=== PATIENT | male | born 1945 | race African-American/Black ===

== ENCOUNTER 2017-10-20 03:36 | Emergency (ER) | payer MEDICARE, MEDICAID ==
[~2017-10-20] VITALS: Ht 188 cm; Wt 79.0 kg
[2017-10-20 04:07] VITALS: BP 137/100
[2017-10-20] MEDS ORDERED: NITROGLYCERIN OINT 1GM/INCH UDPKT TD ONE (04:45)
[2017-10-20] MEDS ORDERED: ASPIRIN 325MG TABLET PO ONE (04:45)
[2017-10-20 05:27] LABS: BASOPHILS % 1.3 % (0.0-2.0); EOSINOPHILS % 1.5 % (0.0-5.0); HEMATOCRIT. 44.4 % (42.0-52.0); HEMOGLOBIN. 14.9 g/dL (14.0-18.0); LYMPHOCYTES % 41.3 % (20.0-50.0); MEAN CORPUSCULAR HEMOGLOBIN 31.6 pg (28.0-32.0); MEAN CORPUSCULAR VOLUME 94.4 fL (80.0-94.0); MEAN PLATELET VOLUME 9.5 fl (7.4-10.4); MONOCYTES % 8.1 % (2.0-8.0); NEUTROPHILS % 47.8 % (40.0-76.0); PLATELET 116 x1000/uL (130-400); RED BLOOD CELL COUNT 4.71 mill/uL (4.7-6.1)
[2017-10-20 05:30] LABS: CHLORIDE 107 mEq/L (98-107)
[2017-10-20 05:36] LABS: D-DIMER 0.57 mg/L FEU (<0.50); INR 1.2; PROTHROMBIN TIME 11.6 sec (9.1-11.1)
== END 2017-10-20 09:59 | disposition left against medical advice (07) ==
LOC: CANBEDREQ 08:16 → ER 09:59
DX: R06.02 Shortness of breath (principal); E87.70 Fluid overload, unspecified; R11.0 Nausea; R53.83 Other fatigue; I10 Essential (primary) hypertension; F17.200 Nicotine dependence, unspecified, uncomplicated; Z98.890 Other specified postprocedural states
CPT/HCPCS: 36415; 71045; 80053; 83880; 84484; 85025; 85379; 85610; 93005; 99285